=== PATIENT | male | born 1985 | race Caucasian/White ===

== ENCOUNTER 2016-10-31 18:07 | Emergency (ER) | payer BC ==
--- NOTE | 2016-10-31 18:52 | ER Document Report ---
HPI - HPI Patient complains to provider of: knee injury Onset: Just prior to arrival Onset/Duration: Sudden Quality of pain: Sharp Pain Level: 1 Context: Patient states that he was playing basketball and went to jump up of his left leg to perform an layup. Patient states that he had sudden left knee pain and felt his patella dislocate. Patient states that he manually pushed his patella back into proper alignment. Patient complains of increased pain with any flexion of his left knee joint. Patient denies any previous injury to his knee but does state he had a laceration that was very deep involving this knee when he was younger. Associated Symptoms: Other - Knee joint pain Exacerbated by: Movement Relieved by: Denies Similar symptoms previously: No Recently seen / treated by doctor: No - ROS ROS below otherwise negative: Yes Systems Reviewed and Negative: Yes All other systems reviewed and negative - CONSTITUTIONAL Constitutional: DENIES: Fever - NEURO Neurology: DENIES: Weakness - CARDIOVASCULAR Cardiovascular: DENIES: Chest pain - GASTROINTESTINAL Gastrointestinal: DENIES: Nausea, Patient vomiting - MUSCULOSKELETAL Musculoskeletal: REPORTS: Extremity pain, Swelling - DERM Skin Color: Normal Skin Problems: None Past Medical History - General Information source: Patient - Social History Smoking Status: Never Smoker Chew tobacco use (# tins/day): No Frequency of alcohol use: None Drug Abuse: None Occupation: facility [place] [employer] Lives with: Family Family History: Reviewed & Not Pertinent Patient has suicidal ideation: No Patient has homicidal ideation: No - Past Medical History Cardiac Medical History: Reports: Hx Hypercholesterolemia Renal/ Medical History: Denies: Hx Peritoneal Dialysis Surgical Hx: Negative - Immunizations Hx Diphtheria, Pertussis, Tetanus Vaccination: Yes Vertical Provider Document - CONSTITUTIONAL Agree With Documented VS: Yes Exam Limitations: No Limitations General Appearance: WD/WN, No Apparent Distress - INFECTION CONTROL TRAVEL OUTSIDE OF THE [place] IN LAST 30 DAYS: No - HEENT HEENT: Atraumatic, Normocephalic - NECK Neck: Normal Inspection - RESPIRATORY Respiratory: No Respiratory Distress O2 Sat by Pulse Oximetry: 98 - CARDIOVASCULAR Pulses: Normal: Dorsalis pedis - MUSCULOSKELETAL/EXTREMETIES Musculoskeletal/Extremeties: Tender - Knee joint tenderness with large effusion. Patient with marked increased tenderness to supra patellar area with any flexion. Patient most comfortable in a hyperextended position of the knee, Edema - NEURO Level of Consciousness: Awake, Alert, Appropriate Motor/Sensory: No Motor Deficit - DERM Integumentary: Warm, Dry, No Rash Course - Re-evaluation Re-evalutation: 10/31/16 Consulted with orthopedic doctor, Dr. Nunez who advises wrapping knee and using a knee immobilizer and having patient follow up in the office as an outpatient - Vital Signs Vital signs: Temp Pulse Resp BP Pulse Ox 98.1 F 81 15 139/89 H 98 10/31/16 18:23 10/31/16 18:23 10/31/16 18:23 10/31/16 18:23 10/31/16 18:23 - Diagnostic Test Radiology reviewed: Image reviewed, Reports reviewed Procedures - Immobilization Left Knee Immobilizer type: Dereje wrap, Knee immobilizer Performed by: Provider Post-Proc Neuro Vasc Exam: Unchanged from pre-exam Alignment checked and good: Yes Discharge - Discharge Clinical Impression: Patellar tendon injury Knee sprain Qualifiers: Encounter type: initial encounter Involved ligament of knee: unspecified ligament Laterality: left Qualified Code(s): S83.92XA - Sprain of unspecified site of left knee, initial encounter Condition: Stable Disposition: HOME, SELF-CARE Instructions: Ice & Elevation ([facility]), Knee Immobilizing Splint ([facility]), Sprained Knee ([facility]), Oral Narcotic Medication ([facility]), Suspected Internal Knee Injury ([facility]) , Use of Crutches ([facility]) Additional Instructions: Return immediately for any new or worsening symptoms Followup with orthopedic care provider, call tomorrow to make a followup appointment Prescriptions: Oxycodone HCl/Acetaminophen [Percocet 5-325 mg Tablet] 1 tab PO ASDIR PRN #20 tablet PRN Reason: Forms: Return to Work Referrals: JESÚS NUNEZ MD [ACTIVE STAFF] - Follow up as needed
--- NOTE | 2016-10-31 19:16 | RADIOLOGY REPORT (SQ) ---
EXAM DESCRIPTION: KNEE LEFT 4 VIEW COMPLETED DATE/TIME: 10/31/2016 7:01 pm REASON FOR STUDY: knee pain, pt suspect reduced patellar dislocation COMPARISON: None. NUMBER OF VIEWS: Four views. TECHNIQUE: AP, lateral, and both oblique radiographic images acquired of the left knee. LIMITATIONS: None. FINDINGS: MINERALIZATION: Normal. BONES: No acute fracture or dislocation. The patella appears slightly more superior than is normally seen and the possibility of injury to the patellar tendon should be considered. JOINT: No effusion. SOFT TISSUES: No soft tissue swelling. No radio-opaque foreign body. OTHER: No other significant finding. IMPRESSION: No evidence for fracture. The patella appears slightly more superior than is normally s een and the possibility of injury to the patellar tendon should be considered. Other findings as not ed above TECHNICAL DOCUMENTATION: JOB ID: [id number]- All Rights Reserved
[2016-10-31 20:13] VITALS: BP 133/77
== END 2016-10-31 20:07 | disposition home or self-care (01) ==
LOC: ER 18:07
DX: S83.92XA Sprain of unspecified site of left knee, initial encounter (principal); X58.XXXA Exposure to other specified factors, initial encounter; Y93.67 Activity, basketball; E78.00 Pure hypercholesterolemia, unspecified
CPT/HCPCS: 99283; 73562; L1830